=== PATIENT | female | born 1970 | race African-American/Black ===

== ENCOUNTER 2022-06-12 04:04 | Day surgery (SDC) | payer BC ==
[2022-06-08 16:23] VITALS: BMI 36.5
[2022-06-12] MEDS ORDERED: LACTATED RINGERS SOLUTION 1,000 ML IV SCH (07:30)
[2022-06-12 09:03] VITALS: RESP 18
[2022-06-12] MEDS ORDERED: ONDANSETRON 4 MG/2 ML VIAL ONE (11:12)
[2022-06-12] MEDS ORDERED: MIDAZOLAM HCL 2 MG/2 ML SINGLE DOSE VIAL ONE (11:12)
[2022-06-12] MEDS ORDERED: PROPOFOL 20 ML ONE (11:12)
[2022-06-12 12:38] VITALS: BP 117/68; PULSE 65; TEMP 98
== END 2022-06-12 12:43 | disposition home or self-care (01) ==
LOC: JASU-SURG 04:04
PROVIDERS: ATTEND Urology
PROC: 0TF4XZZ Fragmentation in Left Kidney Pelvis, External Approach (ICD-10-PCS; principal; 2022-06-12 10:30)
DX: N20.0 Calculus of kidney (principal)
CPT/HCPCS: 81025; C9803-CS; U0003; U0005